=== PATIENT | female | born 1990 | race Caucasian/White ===

== ENCOUNTER 2018-09-25 07:10 | Inpatient (IN) | payer OTHER ==
[2018-09-25 07:51] VITALS: BMI 42.5
[2018-09-25] MEDS ORDERED: OXYTOCIN 30 UNITS in 0.9% NS 30 UNIT/500 ML INFUS.BAG IVPB ONE (08:14)
[2018-09-25 08:40] LABS: BASO % 0.4 % (0-2.0); EOS % 0.6 % (0-4.5); HEMOGLOBIN 11.5 GM/dL (10.7-15.3); LYMPH % 22.2 % (8-40); MCH 27.5 pg (25.7-33.7); MCHC 33.7 g/dl (32.0-36.0); MEAN CELL VOLUME 81.7 fl (80-96); MEAN PLT VOLUME 9.6 fl (7.5-11.1); MONO % 7.9 % (3.8-10.2); NEUT % 68.9 % (42.8-82.8); PLATELET COUNT 138 K/MM3 (134-434); RBC 4.16 M/mm3 (3.60-5.2); WHITE BLOOD COUNT 6.7 K/mm3 (4.0-10.0)
[2018-09-25] MEDS: OXYTOCIN 30 UNITS in 0.9% NS 30 UNIT/500 ML INFUS.BAG IVPB SCH (08:40)
[2018-09-25] MEDS ORDERED: BUTORPHANOL TARTRATE 1 MG/ML VIAL IVPB ONE (08:46)
[2018-09-25] MEDS ORDERED: PROMETHAZINE HCL 25 MG/1 ML VIAL IVPUSH ONE (08:46)
[2018-09-25 08:48] LABS: BLOOD UREA NITROGEN 11.2 mg/dL (7-18); CREATININE 0.5 mg/dL (0.55-1.3); POTASSIUM 3.8 mmol/L (3.5-5.1)
[2018-09-25] MEDS: DEXTROSE 5%-LACTATED RINGERS 1,000 ML IV SCH (09:02)
[2018-09-25 09:17] LABS: INR 0.97 (0.83-1.09); PROTHROMBIN TIME (PATIENT) 11.4 SEC (9.7-13.0)
[2018-09-25 09:20] LABS: ACTIVATED PTT 27.8 SECONDS (25.2-36.5)
[2018-09-25] MEDS ORDERED: PROMETHAZINE HCL 25 MG/1 ML VIAL ONE (11:23)
[2018-09-25] MEDS ORDERED: BUTORPHANOL TARTRATE 2 MG/ML VIAL ONE (11:23)
[2018-09-25] MEDS ORDERED: FENTANYL/BUPIVACAINE/NS/PF - PCEA - 50 ML DISP.SYRIN EP ONE (12:36)
[2018-09-25] MEDS ORDERED: OXYTOCIN 20 UNITS in 0.9% NS 20 UNIT/1,000 ML INFUS.BAG IV ONE (14:03)
[2018-09-25] MEDS ORDERED: LIDOCAINE HCL 1% PRESERVATIVE FREE - 30ML VIAL ONE (14:04)
[2018-09-25] MEDS ORDERED: FENTANYL/BUPIVACAINE/NS/PF - PCEA - 50 ML DISP.SYRIN EP SCH ×2 (14:30→14:55)
[2018-09-25] MEDS: D5W-LR W/ 20 UNITS OXYTOCIN 20 UNIT/1,000 ML INFUS.BAG IV SCH (15:30)
--- NOTE | 2018-09-25 15:58 | HP ---
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: Alzheimer's, CVA, Dementia, Migraine, Multiple Sclerosis, Peripheral Neuropathy, Parkinson's, Seizure, Syncope, TIA, Vertigo, Other Cardiovascular: No: AFIB, Aneurysm, Aortic Insufficiency, Aortic Stenosis, CAD, CHF, Deep Vein Thrombosis, HTN, Hyperlipdemia, AR, Mitral Insufficiency, Mitral Stenosis, Murmur, Pulmonary Hypertension, Other Pulmonary: No: Asthma, Bronchitis, Cancer, COPD, O2 Dependent, Pneumonia, Previously Intubated, Pulmonary Embolus, Pulmonary Fibrosis, Sleep Apnea, Other Gastrointestinal: No: Ascites, Cancer, Constipation, Crohn's Disease, Diverticulitis, Diverticulosis, Esophageal Varices, Gastritis, GERD, GI Bleed, Hemorrhoids, Hiatal Hernia, Inflamatory Bowel Disease, Irritable Bowel Disease, Pancreatitis, Peptic Ulcer Disease, Ulcerative Colitis, Other Hepatobiliary: No: Cirrhosis, Cholelithiasis, Cholecystitis, Choledocholithiasis , Hepatitis A, Hepatitis B, Hepatitis C, Other Renal/: No: Renal Failure, Renal Inusuff, BPH, Cancer, Hematuria, Hemodialysis , Neurogenic Bladder, Renal Calculi, UTI, Other Reproductive: No: Ectopic , Endometriosis, Fibroids, PID, Polycystic Ovary Syndrome, Postmenopausal, Other ...: 6 ...Para: 1 ...Term: 1 ...: 3 ...Spon : 1 ... Weeks Gestation by Dates: 40.1 ...EDC by Shane: 09/24/18 Heme/Onc: No: Anemia, B12 Deficiency, Bleeding Disorder, Cancer, Current Chemotherapy, Current Radiation Therapy, Hemochromatosis, Hypercoaguable State, Myeloproliferative Synd, Sickle Cell Disease, Sickle Cell Trait, Thrombocytopenia, Other Infectious Disease: No: AIDS, C-Diff, Herpes Zoster, HIV, MRSA, STD's, Tuberculosis, VREF, Other Psych: No: Addictions, Anxiety, Bipolar, Depression, Panic, Psychosis, Schizophrenia, Other Musculoskeletal: No: Bursitis, Chronic low back pain, Hemiparesis, Hemiplegia, Osteoarthritis, Paraplegia, Other Rheumatology: No: Fibromyalgia, Gout, Lupus, Rheumatoid Arthritis, Sarcoidosis, Vasculitis, Other ENT: No: Allergic Rhinitis, Sinusitis, Other Endocrine: No: Gardiner's Disease, [place]'s Disease, Diabetes Insipidus, Diabetes Mellitus, Hyperparathyroidism, Hyperthyroidism, Hypothyroidism, Osteopenia, SIADH, Other Dermatology: No: Basal Cell, Cellulitis, Eczema, Melanoma, Psoriasis, Squamous Cell, Other - Past Surgical History Past Surgical History: Yes: None Hx Myomectomy: No Hx Transabdominal Cerclage: No - Advance Directives Advance Directives: Yes: Living Will - Smoking History Smoking history: Never smoked Have you smoked in the past 12 months: No - Alcohol/Substance Use Hx Alcohol Use: No History of Substance Use: reports: None - Social History Usual Living Arrangement: Yes: With Spouse ADL: Independent History of Recent Travel: No Home Medications - Allergies Allergies/Adverse Reactions: Allergies Allergy/AdvReac Type Severity Reaction Status Date / Time No Known Allergies Allergy Verified 09/25/18 07:52 - Home Medications Home Medications: Ambulatory Orders Tablet 1 tab PO DAILY 09/25/18 Family Disease History - Family Disease History Family History: Denies Review of Systems Unable to obtain ROS, reason: none - Review of Systems Constitutional: reports: No Symptoms Eyes: reports: No Symptoms HENT: reports: No Symptoms Neck: reports: No Symptoms Cardiovascular: reports: No Symptoms Respiratory: reports: No Symptoms Gastrointestinal: reports: No Symptoms Genitourinary: reports: No Symptoms Breasts: reports: No Symptoms Reported Musculoskeletal: reports: No Symptoms Integumentary: reports: No Symptoms Neurological: reports: No Symptoms Endocrine: reports: No Symptoms Hematology/Lymphatic: reports: No Symptoms Psychiatric: reports: No Symptoms Pain Intensity: 0 Physical Exam - Maternity Vital Signs: Vital Signs Temperature 97.8 F 09/25/18 12:00 Pulse Rate 71 09/25/18 14:45 Respiratory Rate 18 09/25/18 14:45 Blood Pressure 109/61 09/25/18 14:45 O2 Sat by Pulse Oximetry (%) 99 09/25/18 14:45 Constitutional: Yes: Well Nourished, No Distress, Calm Eyes: Yes: WNL, Conjunctiva Clear, EOM Intact HENT: Yes: WNL, Atraumatic, Normocephalic Neck: Yes: WNL, Supple, Trachea Midline Cardiovascular: Yes: WNL, Regular Rate and Rhythm Lungs: Clear to auscultation Breast(s): Yes: WNL - Abdominal Exam/OB Fundal Height: 42 Number of Fetuses: Single Presentation: Vertex Contractions: Yes Regularity: Irregular Intensity: Unaware Monitor Mode: External Heart Rate Location: [facility] Category: I Accelerations: Uniform - Vaginal Exam/OB Vaginal Bleediing: No Speculum Exam: No Dilatation (cm): 2 Effacement (%): 60 Amniotic Membrane Status: Intact Presentation: Vertex/Position Station: -2 - Physical Exam Musculoskeletal: Yes: WNL Extremities: Yes: WNL Edema: Yes Edema: LUE: 1+, RUE: 1+, LLE: 1+, RLE: 1+ Integumentary: Yes: WNL Deep Tendon Reflex Grade: Normal +2 ...Motor Strength: WNL Psychiatric: Yes: WNL, Alert, Oriented - Labs Lab Results: CBC, BMP 09/25/18 08:00 09/25/18 08:00 Hemorrhage Risk Assessment - Risk Factors Risk Score: 0 Risk Level: Low Risk Assessment/Plan: for induction Assessment/Plan post date for induction
--- NOTE | 2018-09-25 15:59 | PN ---
Progress Note (short form) - Note Progress Note: 11 am, 4 cm, -2,60 %, for epidural , sp stadol
--- NOTE | 2018-09-25 16:00 | PN ---
Progress Note (short form) - Note Progress Note: 1pm, 7 cm , -1, for epidural , continue pitocin
[2018-09-25] MEDS ORDERED: METHYLERGONOVINE MALEATE 0.2 MG/1 ML AMP IM PRN (16:01)
[2018-09-25] MEDS ORDERED: BENZOCAINE 20% 57 GM BOTTLE TP PRN (16:01)
[2018-09-25] MEDS ORDERED: oxyCODONE HCL 5 MG TABLET PO PRN (16:01)
[2018-09-25] MEDS ORDERED: BENZOCAINE 28 GM HEMORRHOIDAL OINTMENT TP PRN (16:01)
[2018-09-25] MEDS ORDERED: WITCH HAZEL 50% (TUCKS) 40 PAD/JAR PAD TP PRN (16:01)
[2018-09-25] MEDS ORDERED: BISACODYL 10 MG SUPP.RECT RC PRN (16:01)
--- NOTE | 2018-09-25 16:01 | PN ---
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
[2018-09-25] MEDS: OXYTOCIN 20 UNITS in 0.9% NS 20 UNIT/1,000 ML INFUS.BAG IV SCH (18:13)
[2018-09-25] MEDS: IBUPROFEN 600 MG TABLET (FP) PO PRN (23:03)
[2018-09-25] MEDS: ACETAMINOPHEN 325 MG TABLET (FP) PO PRN (23:04)
[2018-09-26 07:59] LABS: BASO % 0.3 % (0-2.0); EOS % 0.4 % (0-4.5); HEMATOCRIT 31.6 % (32.4-45.2); HEMOGLOBIN 10.7 GM/dL (10.7-15.3); LYMPH % 17.7 % (8-40); MCH 27.7 pg (25.7-33.7); MCHC 33.8 g/dl (32.0-36.0); MEAN PLT VOLUME 10.7 fl (7.5-11.1); MONO % 7.5 % (3.8-10.2); NEUT % 74.1 % (42.8-82.8); RBC 3.86 M/mm3 (3.60-5.2); RDW 15.2 % (11.6-15.6); WHITE BLOOD COUNT 10.1 K/mm3 (4.0-10.0)
[2018-09-26 08:40] LABS: PLATELET COUNT 152 K/MM3 (134-434)
[2018-09-26] MEDS: IBUPROFEN 600 MG TABLET (FP) PO PRN ×2 (11:26→21:21)
[2018-09-26] MEDS: ACETAMINOPHEN 325 MG TABLET (FP) PO PRN ×2 (11:26→21:20)
[2018-09-26] MEDS ORDERED: DIPHTH,PERTUSS(ACELL),TET 0.5 ML DISP.SYRIN IM ONE (12:15)
--- NOTE | 2018-09-26 16:42 | PN ---
Post Progress Note Post Day: 1 Type of Delivery: Vital Signs: Vital Signs Temperature 98.2 F 09/26/18 14:00 Pulse Rate 69 09/26/18 14:00 Respiratory Rate 20 09/26/18 14:00 Blood Pressure 100/68 09/26/18 14:00 O2 Sat by Pulse Oximetry (%) 99 09/25/18 14:45 Breast Exam: Yes: Soft Uterus: Yes: Fundus Firm, Fundus below umbilicus Abdomen/GI: Yes: Abdomen soft, Passing flatus, Tolerating PO Lochia: Yes: Serosa Lochia, amount: Small Extremities: Yes: Calves non-tender Perineum: Yes: Laceration Activity: Ambulating - Labs Labs: CBC WBC 10.1 K/mm3 (4.0-10.0) H 09/26/18 06:41 RBC 3.86 M/mm3 (3.60-5.2) 09/26/18 06:41 Hgb 10.7 GM/dL (10.7-15.3) 09/26/18 06:41 Hct 31.6 % (32.4-45.2) L 09/26/18 06:41 MCV 82.0 fl (80-96) 09/26/18 06:41 MCH 27.7 pg (25.7-33.7) 09/26/18 06:41 MCHC 33.8 g/dl (32.0-36.0) 09/26/18 06:41 RDW 15.2 % (11.6-15.6) 09/26/18 06:41 Plt Count 152 K/MM3 (134-434) 09/26/18 06:41 MPV 10.7 fl (7.5-11.1) D 09/26/18 06:41 Absolute Neuts (auto) 7.5 K/mm3 (1.5-8.0) 09/26/18 06:41 Neutrophils % 74.1 % (42.8-82.8) 09/26/18 06:41 Lymphocytes % 17.7 % (8-40) D 09/26/18 06:41 Monocytes % 7.5 % (3.8-10.2) 09/26/18 06:41 Eosinophils % 0.4 % (0-4.5) 09/26/18 06:41 Basophils % 0.3 % (0-2.0) 09/26/18 06:41 Nucleated RBC % 0 % (0-0) 09/26/18 06:41 Assessment/Plan doing well, dc pt home tomorrow
--- NOTE | 2018-09-26 16:44 | DS ---
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: Vital Signs Temperature 98.2 F 09/26/18 14:00 Pulse Rate 69 09/26/18 14:00 Respiratory Rate 20 09/26/18 14:00 Blood Pressure 100/68 09/26/18 14:00 O2 Sat by Pulse Oximetry (%) 99 09/25/18 14:45 Constitutional: Yes: Well Nourished, No Distress, Calm Eyes: Yes: WNL, Conjunctiva Clear, EOM Intact HENT: Yes: WNL, Atraumatic, Normocephalic Neck: Yes: WNL, Supple, Trachea Midline Cardiovascular: Yes: WNL, Regular Rate and Rhythm Respiratory: Yes: WNL, Regular, CTA Bilaterally Gastrointestinal: Yes: WNL, Normal Bowel Sounds, Soft ...Rectal Exam: Yes: WNL Renal/: Yes: WNL Pelvis: Yes: WNL External Genitalia: Yes: Normal Internal Exam Deferred: No Vaginal Exam: Yes: Normal Cervix: Yes: Normal Uterus: Yes: Normal Adnexa: Normal: Bilateral ....Post : Yes: Uterus firm, Uterus non-tender Breast(s): Yes: WNL Musculoskeletal: Yes: WNL Extremities: Yes: WNL Edema: Yes Edema: LUE: 1+, RUE: 1+, LLE: 1+, RLE: 1+ Integumentary: Yes: WNL Wound/Incision: Yes: Clean/Dry, Well Approximated Neurological: Yes: WNL, Alert, Oriented ...Motor Strength: WNL Psychiatric: Yes: WNL, Alert, Oriented Labs: CBC, BMP 09/26/18 06:41 09/25/18 08:00 Delivery - Delivery Type of Anesthesia: Epidural Episiotomy/Laceration: Periurethral Extnsion/lac, 1st degree EBL (cc): 300 Delivery, Single - Stages of Labor Date 1st Stage Initiatied: 09/25/18 Time 1st Stage Initiated: 11:00 Date 2nd Stage Initiated: 09/25/18 Time 2nd Stage Initiated: 15:00 Date of Delivery: 09/25/18 Time of Delivery: 15:25 Time Placenta Delivered: 15:35 Placenta: Yes: Spontaneous - 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
[2018-09-26] MEDS: DEXTROSE 5%-LACTATED RINGERS 1,000 ML IV SCH (21:24)
[2018-09-26] MEDS: OXYTOCIN 30 UNITS in 0.9% NS 30 UNIT/500 ML INFUS.BAG IVPB SCH (21:24)
[2018-09-26] MEDS: D5W-LR W/ 20 UNITS OXYTOCIN 20 UNIT/1,000 ML INFUS.BAG IV SCH (21:24)
[2018-09-26] MEDS: OXYTOCIN 20 UNITS in 0.9% NS 20 UNIT/1,000 ML INFUS.BAG IV SCH (21:24)
[2018-09-26] MEDS ORDERED: SENNOSIDES/DOCUSATE COMBO (SENNA PLUS) TABLET (UD) PO PRN (22:00)
--- NOTE | 2018-09-27 05:48 | PN ---
Post Progress Note Post Day: 2 Type of Delivery: Vital Signs: Vital Signs Temperature 98.4 F 09/26/18 22:00 Pulse Rate 70 09/26/18 22:00 Respiratory Rate 18 09/26/18 22:00 Blood Pressure 133/77 09/26/18 22:00 O2 Sat by Pulse Oximetry (%) 99 09/25/18 14:45 Breast Exam: Yes: Soft Uterus: Yes: Fundus Firm, Fundus below umbilicus Abdomen/GI: Yes: Abdomen soft, Passing flatus, Tolerating PO Lochia: Yes: Alba Lochia, amount: Small Extremities: Yes: Calves non-tender Perineum: Yes: Laceration Activity: Ambulating - Labs Labs: CBC WBC 10.1 K/mm3 (4.0-10.0) H 09/26/18 06:41 RBC 3.86 M/mm3 (3.60-5.2) 09/26/18 06:41 Hgb 10.7 GM/dL (10.7-15.3) 09/26/18 06:41 Hct 31.6 % (32.4-45.2) L 09/26/18 06:41 MCV 82.0 fl (80-96) 09/26/18 06:41 MCH 27.7 pg (25.7-33.7) 09/26/18 06:41 MCHC 33.8 g/dl (32.0-36.0) 09/26/18 06:41 RDW 15.2 % (11.6-15.6) 09/26/18 06:41 Plt Count 152 K/MM3 (134-434) 09/26/18 06:41 MPV 10.7 fl (7.5-11.1) D 09/26/18 06:41 Absolute Neuts (auto) 7.5 K/mm3 (1.5-8.0) 09/26/18 06:41 Neutrophils % 74.1 % (42.8-82.8) 09/26/18 06:41 Lymphocytes % 17.7 % (8-40) D 09/26/18 06:41 Monocytes % 7.5 % (3.8-10.2) 09/26/18 06:41 Eosinophils % 0.4 % (0-4.5) 09/26/18 06:41 Basophils % 0.3 % (0-2.0) 09/26/18 06:41 Nucleated RBC % 0 % (0-0) 09/26/18 06:41 Assessment/Plan dc pt home today
[2018-09-27 09:06] VITALS: BP 117/61; PULSE 76; TEMP 97.6
== END 2018-09-27 09:25 | disposition home or self-care (01) | DRG 560 ==
LOC: JLDR 07:10 → J3W 17:00
PROVIDERS: ADMIT Obstetrics & Gynecology; ATTEND Obstetrics & Gynecology
DX: O48.0 Post-term pregnancy (principal); O70.0 First degree perineal laceration during delivery; Z3A.40 40 weeks gestation of pregnancy; Z37.0 Single live birth
CPT/HCPCS: 36415; 59409; 80048; 85025; 85610; 85730; 86593; 86850; 86900; 86901; 90715

== ENCOUNTER 2020-07-07 07:11 | Inpatient (IN) | payer OTHER ==
[2020-07-07] MEDS: ELECTROLYTE-148 SOLN 1,000 ML IV SCH ×2 (08:30→13:42)
[2020-07-07 08:34] LABS: BASO % 0.3 % (0-2.0); EOS % 0.8 % (0-4.5); HEMATOCRIT 35.2 % (32.4-45.2); HEMOGLOBIN 12.3 GM/dL (10.7-15.3); LYMPH % 20.6 % (8-40); MCH 29.2 pg (25.7-33.7); MCHC 34.9 g/dl (32.0-36.0); MEAN CELL VOLUME 83.8 fl (80-96); MEAN PLT VOLUME 9.9 fl (7.5-11.1); MONO % 6.7 % (3.8-10.2); NEUT % 71.6 % (42.8-82.8); PLATELET COUNT 150 K/MM3 (134-434); WHITE BLOOD COUNT 8.2 K/mm3 (4.0-10.0)
[2020-07-07 08:50] LABS: INR 0.95 (0.83-1.09); PROTHROMBIN TIME (PATIENT) 11.5 SEC (9.7-13.0)
[2020-07-07 09:00] VITALS: BMI 39.4
[2020-07-07 09:25] LABS: CALCIUM 9.1 mg/dL (8.5-10.1)
[2020-07-07 09:26] LABS: BLOOD UREA NITROGEN 10.1 mg/dL (7-18)
[2020-07-07 09:29] LABS: CREATININE 0.5 mg/dL (0.55-1.3)
[2020-07-07] MEDS ORDERED: OXYTOCIN 30 UNITS in 0.9% NS 30 UNIT/500 ML INFUS.BAG IVPB ONE (10:27)
[2020-07-07] MEDS ORDERED: OXYTOCIN 30 UNITS in 0.9% NS 30 UNIT/500 ML INFUS.BAG IVPB SCH (11:00)
[2020-07-07 14:36] LABS: HIV INTERPRETATION NEGATIVE (NEGATIVE)
[2020-07-07] MEDS ORDERED: PCA PUMP NR ONE (15:11)
[2020-07-07] MEDS ORDERED: FENTANYL/BUPIVACAINE/NS/PF - PCEA - 50 ML DISP.SYRIN EP ONE (15:12)
[2020-07-07] MEDS ORDERED: BUPIVACAINE HCL/PF 0.25% (2.5MG/ML) 10 ML VIAL ONE (15:36)
[2020-07-07] MEDS ORDERED: NALOXONE HCL 0.4 MG/ML VIAL IVPUSH PRN (15:47)
[2020-07-07] MEDS ORDERED: FENTANYL/BUPIVACAINE/NS/PF - PCEA - 50 ML DISP.SYRIN EP SCH (16:00)
[2020-07-07] MEDS ORDERED: OXYTOCIN 20 UNITS in 0.9% NS 20 UNIT/1,000 ML INFUS.BAG IV ONE ×2 (17:18→20:54)
[2020-07-07] MEDS ORDERED: WITCH HAZEL 50% (TUCKS) 40 PAD/JAR PAD TP PRN (17:43)
[2020-07-07] MEDS ORDERED: BISACODYL 10 MG SUPP.RECT RC PRN (17:43)
[2020-07-07] MEDS ORDERED: BENZOCAINE 28 GM HEMORRHOIDAL OINTMENT TP PRN (17:43)
[2020-07-07] MEDS ORDERED: oxyCODONE HCL 5 MG TABLET PO PRN (17:43)
[2020-07-07] MEDS ORDERED: BENZOCAINE 20% 57 GM BOTTLE TP PRN (17:43)
[2020-07-07] MEDS ORDERED: METHYLERGONOVINE MALEATE 0.2 MG/1 ML AMP IM PRN (17:43)
[2020-07-07] MEDS ORDERED: OXYTOCIN 20 UNITS in 0.9% NS 20 UNIT/1,000 ML INFUS.BAG IV SCH (17:45)
[2020-07-07] MEDS ORDERED: DEXTROSE 5%-LACTATED RINGERS 1,000 ML IV SCH (17:45)
[2020-07-07] MEDS: ACETAMINOPHEN 325 MG TABLET (FP) PO PRN (21:00)
[2020-07-07] MEDS: IBUPROFEN 600 MG TABLET (FP) PO PRN (21:00)
[2020-07-07] MEDS ORDERED: ACETAMINOPHEN 325 MG TABLET (FP) ONE (21:02)
[2020-07-07] MEDS ORDERED: IBUPROFEN 600 MG TABLET (FP) PO ONE (21:02)
[2020-07-08 06:01] LABS: BASO % 0.3 % (0-2.0); EOS % 0.5 % (0-4.5); HEMATOCRIT 34.8 % (32.4-45.2); HEMOGLOBIN 11.9 GM/dL (10.7-15.3); LYMPH % 12.6 % (8-40); MCHC 34.2 g/dl (32.0-36.0); MEAN CELL VOLUME 84.6 fl (80-96); MEAN PLT VOLUME 10.2 fl (7.5-11.1); MONO % 7.6 % (3.8-10.2); PLATELET COUNT 145 K/MM3 (134-434); RBC 4.12 M/mm3 (3.60-5.2); WHITE BLOOD COUNT 10.1 K/mm3 (4.0-10.0)
[2020-07-08] MEDS: IBUPROFEN 600 MG TABLET (FP) PO PRN ×2 (08:07→20:35)
[2020-07-08] MEDS: ACETAMINOPHEN 325 MG TABLET (FP) PO PRN ×2 (08:07→20:35)
[2020-07-08] MEDS ORDERED: DIPHTH,PERTUSS(ACELL),TET 0.5 ML DISP.SYRIN IM ONE (10:00)
[2020-07-08] MEDS: PRENATAL VITAMINS W/ FOLIC ACID TABLET (FP) PO SCH (10:44)
[2020-07-08] MEDS ORDERED: SENNOSIDES/DOCUSATE COMBO (SENNA PLUS) TABLET (UD) PO PRN (22:00)
[2020-07-08 22:16] VITALS: BP 107/58
[2020-07-09] MEDS: PRENATAL VITAMINS W/ FOLIC ACID TABLET (FP) PO SCH (09:12)
[2020-07-09] MEDS: IBUPROFEN 600 MG TABLET (FP) PO PRN (09:12)
[2020-07-09] MEDS: ACETAMINOPHEN 325 MG TABLET (FP) PO PRN (09:12)
[2020-07-09 10:17] VITALS: PULSE 81; TEMP 97.8
== END 2020-07-09 11:10 | disposition home or self-care (01) | DRG 560 ==
LOC: JLDR 07:11 → J3W 20:54
PROVIDERS: ADMIT Obstetrics & Gynecology; ATTEND Obstetrics & Gynecology
PROC: 10E0XZZ Delivery of Products of Conception, External Approach (ICD-10-PCS; principal; 2020-07-07)
PROC: 3E033VJ Introduction of Other Hormone into Peripheral Vein, Percutaneous Approach (ICD-10-PCS; 2020-07-07)
DX: O80 Encounter for full-term uncomplicated delivery (principal); Z3A.39 39 weeks gestation of pregnancy; Z37.0 Single live birth
CPT/HCPCS: 36415; 59409; 80048; 85025; 85610; 85730; 86780; 86850; 86900; 86901; 87389; 90715; C9803; U0003; U0005